=== PATIENT | female | born 1950 ===

== ENCOUNTER 2019-05-16 06:45 | Day surgery (SDC) | payer OTHER ==
[~2019-05-16 06:45] MED LIST: ENTERIC ASPIRIN81 MG PO; FORTAMET500 MG PO; LOSARTAN-HCTZ1 EAC2 PO; PROTONIX40 MG PO; SYNTHROID75 MCG PO
== END 2019-05-16 10:50 | disposition home or self-care (01) ==
LOC: CIR.AMB 06:45
DX: M99.63 Osseous and subluxation stenosis of intervertebral foramina of lumbar region (principal)

== ENCOUNTER 2024-04-29 07:02 | Outpatient (CLI) | payer OTHER | END 2024-04-29 07:09 | disposition home or self-care (01) | LOC: TOM 07:02 | PROVIDERS: ATTEND Internal Medicine | DX: R97.8 Other abnormal tumor markers (principal); G89.3 Neoplasm related pain (acute) (chronic) | CPT/HCPCS: 74177; Q9965 ==

== ENCOUNTER 2024-05-09 08:07 | Outpatient (CLI) | payer OTHER | END 2024-05-09 08:14 | disposition home or self-care (01) | LOC: SONOGRAMA 08:07 | PROVIDERS: ATTEND Internal Medicine | DX: C53.9 Malignant neoplasm of cervix uteri, unspecified (principal); N88.8 Other specified noninflammatory disorders of cervix uteri ==

== ENCOUNTER 2024-05-09 09:30 | Outpatient (CLI) | payer OTHER ==
[2024-05-09 11:36] LABS: CREATININE SERUM 0.71 mg/dL (0.55-1.02)
== END 2024-05-09 09:36 | disposition home or self-care (01) ==
LOC: LAB 09:30
PROVIDERS: ATTEND Radiology Diagnostic Radiology
DX: R10.30 Lower abdominal pain, unspecified (principal)

== ENCOUNTER 2024-05-13 07:11 | Outpatient (CLI) | payer OTHER | END 2024-05-13 09:06 | disposition home or self-care (01) | LOC: MRI 07:11 | PROVIDERS: ATTEND Internal Medicine | DX: K85.90 Acute pancreatitis without necrosis or infection, unspecified (principal) | CPT/HCPCS: 74183; Q9965 ==

== ENCOUNTER 2024-05-29 07:27 | Outpatient (CLI) | payer OTHER | END 2024-05-29 07:28 | disposition home or self-care (01) | LOC: NUCLEAR 07:27 | PROVIDERS: ATTEND Internal Medicine | DX: G89.3 Neoplasm related pain (acute) (chronic) (principal); R97.8 Other abnormal tumor markers | CPT/HCPCS: 78816; A9552 ==